=== PATIENT | female | born 1975 | race Caucasian/White ===

== ENCOUNTER → 2016-06-11 | Outpatient (CLI) | payer OTHER ==
[~2016-06-11] MED LIST: ADVIN25/60 INH; ALBUAER19 INH; CHOL1TAB42 PO; FLUO20CA35 PO; MULT-506 PO; advair; nexium; spironolactone
--- NOTE | 2016-06-11 14:33 | DIAGNOSTIC IMAGING REPORT ---
RIGHT KNEE 2 VIEWS CLINICAL HISTORY: Right knee pain. Swelling. FINDINGS: AP and lateral views of the right knee are obtained. No prior studies are available for comparison at the time of dictation. The skeletal structures are well mineralized. No fracture is seen. The joint spaces of the knee are well-maintained. A calcified fabella is observed. Mild soft tissue swelling is present around the knee. A small joint effusion is suspected. IMPRESSION: Mild soft tissue swelling with no acute bony abnormality seen in the right knee. Electronically signed by: Kian Calderon M.D. 06/11/2016 2:31 PM Dictated Date/Time: 06/11/2016 2:30 PM
== END | disposition home or self-care (01) ==
LOC: C.RADBC 14:09
PROVIDERS: ATTEND Family Medicine
DX: M25.561 Pain in right knee (principal)

== ENCOUNTER → 2016-09-19 | Outpatient (CLI) | payer OTHER ==
--- NOTE | 2016-09-19 15:51 | DIAGNOSTIC IMAGING REPORT ---
RIGHT KNEE MRI HISTORY: R KNEE PAIN Right COMPARISON STUDY: Right knee 06/11/2016. TECHNIQUE: Multiplanar multisequence MRI of the right knee was performed according to standard department protocol without the use of contrast. FINDINGS: Menisci: The medial and lateral menisci are intact. Ligaments: Diffuse abnormal ACL within the few fibers remaining. This suggests an old high-grade partial tear. The PCL, MCL, and LCL are intact. Extensor mechanism: The quadriceps tendon and patellar ligament are intact. Articular cartilage and bone: No fracture or dislocation. Patchy marrow edema within the lateral tibial plateau favors a subacute bone contusion. Multifocal areas of near full-thickness cartilage defects within the medial femoral condyle. There is 50% cartilage thinning within the medial patellar facet. Joint effusion: Small. Soft tissues: Intact. IMPRESSION: 1. Abnormal appearing ACL with only a few fibers remaining intact. This suggests an old high-grade partial tear. 2. Small joint effusion. 3. Patchy marrow edema within the lateral tibial plateau which favors a subacute bone contusion. No fractures identified. 4. Mild osteoarthritis at described above. Electronically signed by: Kurt Matthews M.D. 09/19/2016 3:49 PM Dictated Date/Time: 09/19/2016 3:38 PM
== END | disposition home or self-care (01) ==
LOC: C.MRIBC 14:50
PROVIDERS: ATTEND Orthopaedic Surgery
DX: M17.11 Unilateral primary osteoarthritis, right knee (principal); M23.8X1 Other internal derangements of right knee; M25.561 Pain in right knee

== ENCOUNTER → 2017-01-07 | Day surgery (SDC) | payer OTHER ==
[2016-12-16 13:19] VITALS: Ht 167.6 cm; Wt 65.9 kg
[~2017-01-07] VITALS: Ht 167.6 cm; Wt 65.9 kg
[~2017-01-07] MED LIST changes: -advair; -nexium; -spironolactone
== END | disposition home or self-care (01) ==
LOC: EDSTATUS 07:00 → C.PAT 14:35
PROVIDERS: ATTEND Orthopaedic Surgery Sports Medicine
DX: S83.90XA Sprain of unspecified site of unspecified knee, initial encounter (principal); X58.XXXA Exposure to other specified factors, initial encounter

== ENCOUNTER → 2017-08-25 | Outpatient (CLI) | payer OTHER | END | disposition home or self-care (01) | LOC: C.PAPS 11:57 | PROVIDERS: ATTEND Family Medicine | DX: Z12.72 Encounter for screening for malignant neoplasm of vagina (principal) ==

== ENCOUNTER → 2017-08-28 | Outpatient (CLI) | payer OTHER ==
--- NOTE | 2017-08-28 09:33 | DIAGNOSTIC IMAGING REPORT ---
CT SINUSES-MAXILLOFACIAL W/O CLINICAL HISTORY: CHRONIC SINUSITIS COMPARISON STUDY: None. TECHNIQUE: CT scan of the paranasal sinuses was performed in the axial plane. Coronal reconstructed images were obtained and reviewed. A dose lowering technique was utilized adhering to the principles of ALARA. CT DOSE: 269.19 mGycm FINDINGS: There is no hydrocephalus. No orbital masses are visualized. The mastoid air cells are symmetrically aerated. Middle ear cavities appear symmetrically aerated. There is no evidence of significant mucosal thickening. There are no air-fluid levels. The ostiomeatal units are patent bilaterally. The frontal and ethmoidal recesses are patent. IMPRESSION: 1. No evidence of significant mucosal disease 2. The ostiomeatal units are patent bilaterally Electronically signed by: Alvarado Guardado M.D. 08/28/2017 9:32 AM Dictated Date/Time: 08/28/2017 9:29 AM
== END | disposition home or self-care (01) ==
LOC: C.CTS 09:13
PROVIDERS: ATTEND Family Medicine
DX: J32.9 Chronic sinusitis, unspecified (principal)

== ENCOUNTER → 2017-09-18 | Outpatient (CLI) | payer OTHER | END | disposition home or self-care (01) | LOC: C.LABSPEC 15:38 | PROVIDERS: ATTEND Family Medicine | DX: J02.9 Acute pharyngitis, unspecified (principal) ==

== ENCOUNTER → 2017-09-21 | Outpatient (CLI) | payer OTHER ==
--- NOTE | 2017-09-21 15:27 | DIAGNOSTIC IMAGING REPORT ---
L FOREARM 2 VIEWS ROUTINE CLINICAL HISTORY: PAIN trauma COMPARISON: None. DISCUSSION: The bones and joint spaces appear intact. There is no evidence of fracture, dislocation or bony disease. There is no evidence for soft tissue swelling. IMPRESSION: Negative study. The above report was generated using voice recognition software. It may contain grammatical, syntax or spelling errors. Electronically signed by: Davey Plunkett M.D. 09/21/2017 3:26 PM Dictated Date/Time: 09/21/2017 3:26 PM
== END | disposition home or self-care (01) ==
LOC: C.RADBC 15:09
PROVIDERS: ATTEND Family Medicine
DX: M79.632 Pain in left forearm (principal)